=== PATIENT | female | born 1930 | race Caucasian/White ===

== ENCOUNTER 2016-10-19 12:57 | Observation (INO) | payer OTHER ==
[2016-10-19 13:36] VITALS: BMI 23.3
--- NOTE | 2016-10-19 14:35 | PDOC ---
History of Present Illness - General History Source: Patient, Family Exam Limitations: No Limitations - History of Present Illness Initial Comments: 10/19/16 14:35 The patient is a 86 year old female, with a significant past medical history of cardiac stents (multiple), who presents to the emergency department with SOB for over 2 weeks. The patient was sent here by her PCP, after an having an EKG reading. The patient reports her SOB is often made worse when lying down flat or with any activity. She denies any complaints of pain. She denies any cough. She denies recent fevers, chills, headache or dizziness. She denies recent nausea, vomit, diarrhea or constipation. She denies recent dysuria, frequency, urgency or hematuria. She denies recent chest pain. Allergies: NKDA Past surgical history: See HPI Social history: Nonsmoker. Denies EtOH use and drug use. Primary Care Physician: Dr. Rouse <Robert Mills - Last Filed: 10/19/16 16:39> - General History Source: Patient, Family, Old Records Exam Limitations: No Limitations <Shayla Wolfe - Last Filed: 10/19/16 17:05> - General Chief Complaint: Shortness of Breath Stated Complaint: SOB, LAB VARIANCE (PCP SENT) Time Seen by Provider: 10/19/16 13:56 Past History <Robert Mills - Last Filed: 10/19/16 16:39> - Past Medical History Anemia: No Asthma: Yes Cancer: No Cardiac Disorders: Yes (STENTS;CAD;PVD) CVA: No COPD: No CHF: No Dementia: No Diabetes: No GI Disorders: No Disorders: Yes HTN: Yes Hypercholesterolemia: Yes Liver Disease: No Seizures: No Thyroid Disease: No - Surgical History Abdominal Surgery: No Appendectomy: No Cardiac Surgery: Yes (STENTS) Cholecystectomy: No Lung Surgery: No Neurologic Surgery: Yes (BACK SURGERY) Orthopedic Surgery: No - Psycho/Social/Smoking Cessation Hx Suicidal Ideation: No Smoking History: Never smoked Have you smoked in the past 12 months: No Hx Alcohol Use: No Drug/Substance Use Hx: No Substance Use Type: None Hx Substance Use Treatment: No <Shayla Wolfe - Last Filed: 10/19/16 17:05> - Past Medical History Allergies/Adverse Reactions: Allergies Allergy/AdvReac Type Severity Reaction Status Date / Time No Known Drug Allergies Allergy Verified 10/19/16 13:38 Home Medications: Ambulatory Orders Aspirin [ASA -] 81 mg PO DAILY 06/06/12 Clopidogrel Bisulfate [Plavix] 75 mg PO DAILY 06/06/12 Montelukast Na [Singulair] 10 PO DAILY 06/06/12 Ranolazine [Ranexa] 500 mg PO BID 06/06/12 Simvastatin [Zocor -] 40 PO DAILY 06/06/12 Timolol [Betimol] 10 ml OP DAILY 06/06/12 Tiotropium [place] [Spiriva] 18 mcg IH DAILY 06/06/12 Meclizine HCl [Antivert -] PO BID 06/07/12 Review of Systems - Review of Systems Able to Perform ROS?: Yes Comments:: 10/19/16 14:35 CONSTITUTIONAL: Absent: fever, no chills, no fatigue EYES: Absent: visual changes ENT: Absent: ear pain, no sore throat CARDIOVASCULAR: Absent: chest pain, no palpitations RESPIRATORY: +SOB. Absent: cough GI: Absent: abdominal pain, no nausea, no vomiting, no constipation, no diarrhea GENITOURINARY: Absent: dysuria, no frequency, no hematuria MUSKULOSKELETAL: Absent: back pain, no arthralgia, no myalgia SKIN: Absent: rash NEURO: Absent: headache <Robert Mills - Last Filed: 10/19/16 16:39> *Physical Exam - Vital Signs Last Vital Signs Temp Pulse Resp BP Pulse Ox 98.2 F 75 18 145/74 95 10/19/16 13:32 10/19/16 13:32 10/19/16 13:32 10/19/16 13:32 10/19/16 13:32 - Physical Exam Comments: 10/19/16 14:36 GENERAL: Well developed, well nourished. Awake and alert. No acute distress. HEENT: Normocephalic, atraumatic. PERRLA, EOMI. No conjunctival pallor. Sclera are non- icteric. Moist mucous membranes. Oropharynx is clear. NECK: Supple. Full ROM. No JVD. Carotid pulses 2+ and symmetric, without bruits. No thyromegaly. No lymphadenopathy. CARDIOVASCULAR: Regular rate and rhythm. No murmurs, rubs, or gallops. Distal pulses are 2+ and symmetric. PULMONARY: No evidence of respiratory distress. Lungs clear to auscultation bilaterally. No wheezing, rales or rhonchi. ABDOMINAL: Soft. Non-tender. Non-distended. No rebound or guarding. No organomegaly. Normoactive bowel sounds. MUSCULOSKELETAL Normal range of motion at all joints. No bony deformities or tenderness. No CVA tenderness. EXTREMITIES: Trace bipedal edema. No cyanosis. No clubbing. No calf tenderness. SKIN: Warm and dry. Normal capillary refill. No rashes. No jaundice. NEUROLOGICAL: Alert, awake, appropriate. Cranial nerves 2-12 intact. No deficits to light touch and temperature in face, upper extremities and lower extremities. No motor deficits in the in face, upper extremities and lower extremities. Normoreflexic in the upper and lower extremities. Normal speech. Toes are down- going bilaterally. Gait is normal without ataxia. PSYCHIATRIC: Cooperative. Good eye contact. Appropriate mood and affect. <Robert Mills - Last Filed: 10/19/16 16:39> - Vital Signs Last Vital Signs Temp Pulse Resp BP Pulse Ox 98.2 F 75 18 145/74 95 10/19/16 13:32 10/19/16 13:32 10/19/16 13:32 10/19/16 13:32 10/19/16 13:32 <Shayla Wolfe - Last Filed: 10/19/16 17:05> ED Treatment Course - LABORATORY CBC & Chemistry Diagram: 10/19/16 14:34 10/19/16 14:34 - RADIOLOGY Radiograph Interpretation: 10/19/16 16:37 CHEST X-RAY impressions reported by : No evidence of pneumonia, CHF, pneumothrorax, or large pleural effusion. <Robert Mills - Last Filed: 10/19/16 16:39> - LABORATORY CBC & Chemistry Diagram: 10/19/16 14:34 10/19/16 14:34 - RADIOLOGY Radiology Studies Ordered: Category Date Time Status CHEST X-RAY PORTABLE* [RAD] Stat Radiology 10/19/16 14:06 Ordered <Shayla Wolfe - Last Filed: 10/19/16 17:05> Medical Decision Making - Medical Decision Making 10/19/16 16:34 Call made to , awaiting call back. 10/19/16 16:39 Call back from , case discussed. <Robert Mills - Last Filed: 10/19/16 16:39> - Medical Decision Making 10/19/16 15:21 86-year-old female with history of coronary artery disease, CHF, hypertension presents the emergency Department with complaints of 2 week history of progressive dyspnea on exertion but denies chest pain. Differential diagnosis includes but is not limited to: CHF exacerbation, pneumonia, electrolyte abnormality, anemia, toxic/metabolic derangement. Plan: 1. EKG 2. Labs 3. Chest x-ray 4. Observe and reevaluate 10/19/16 16:53 Addendum: The labs were reviewed and are noted in the EMR. Her BNP is elevated and CXR shows atelectasis in the RLL. Will admit to tele observation for serial cardiac enzymes, echocardiogram and diuresis. the case was discussed with Dr. Ramirez. Lasix 20mg IV ordered. <Shayla Wolfe - Last Filed: 10/19/16 17:05> *DC/Admit/Observation/Transfer - Attestations Scribe Attestion: Documentation prepared by Robert Mills, acting as medical equipment repair technician for Shayla Wolfe MD. 10/19/16 14:36 <Robert Mills - Last Filed: 10/19/16 16:39> - Discharge Dispostion Admit: Yes - Attestations Physician Attestion: 10/19/16 15:23 I, Dr. Shayla Wolfe, attest that the scribes documentation that appears above has been prepared under my direction and personally reviewed by me in its entirety. I confirmed that the note above accurately reflects all work, treatment, procedures, and medical decision-making performed by me. <Shayla Wolfe - Last Filed: 10/19/16 17:05> Diagnosis at time of Disposition: Shortness of breath, CHF exacerbation - Discharge Dispostion Condition at time of disposition: Stable
[2016-10-19 15:11] LABS: URINE APPEARANCE CLEAR; URINE BILIRUBIN NEGATIVE (NEGATIVE); URINE BLOOD NEGATIVE (NEGATIVE); URINE COLOR DKYELLOW; URINE GLUCOSE (UA) NEGATIVE (NEGATIVE); URINE KETONE NEGATIVE (NEGATIVE); URINE NITRITE NEGATIVE (NEGATIVE); URINE UROBILINOGEN NEGATIVE E.U./dl (0.2-1.0)
[2016-10-19 15:21] LABS: BASOPHIL 0.5 % (0-2.0); EOSINOPHIL 1.6 % (0-4.5); MCH 26.2 pg (25.7-33.7); MEAN PLT VOLUME 9.6 fl (7.5-11.1); NEUTROPHILS 76.6 % (42.8-82.8); PLATELET COUNT 185 K/MM3 (134-434); RDW 15.8 % (11.6-15.6); WHITE BLOOD COUNT 8.4 K/mm3 (4.0-10.0)
[2016-10-19 15:33] LABS: URINE LEUK ESTERASE TRACE (NEGATIVE); URINE PROTEIN 1+ (NEGATIVE)
[2016-10-19 15:35] LABS: URINE HYALINE CAST 1 /lpf; URINE MUCUS RARE; URINE RBC 1 /hpf (0-3); URINE WBC 5 /hpf (3-5)
[2016-10-19 15:36] LABS: ALBUMIN 3.8 g/dl (3.4-5.0); ANION GAP 10 (8-16); BILIRUBIN,TOTAL 0.6 mg/dL (0.2-1.0); CALCIUM 9.2 mg/dL (8.5-10.1); CO2 30 mmol/L (21-32); CREATININE 0.8 mg/dL (0.55-1.02); GLUCOSE,RANDOM 88 mg/dL (74-106); SGOT/AST 14 U/L (15-37); SGPT/ALT 18 U/L (12-78); TOT PROT 6.6 g/dl (6.4-8.2)
[2016-10-19 15:39] LABS: ALK PHOS 82 U/L (45-117); TROPONIN I < 0.02 ng/ml (0.00-0.05)
[2016-10-19] MEDS ORDERED: FUROSEMIDE 40 MG/4 ML INJECTABLE VIAL IVPUSH ONE (16:39)
[2016-10-19] MEDS ORDERED: FUROSEMIDE 40 MG/4 ML INJECTABLE VIAL ONE (16:48)
[2016-10-19 19:58] VITALS: BP 162/75; PULSE 77; TEMP 98.1
--- NOTE | 2016-10-20 14:14 | EKG ---
Test Reason : Blood Pressure : / mmHG Vent. Rate : 071 BPM Atrial Rate : 071 BPM P-R Int : 176 ms QRS Dur : 084 ms QT Int : 436 ms P-R-T Axes : 055 -06 125 degrees QTc Int : 473 ms POOR DATA QUALITY, INTERPRETATION MAY BE ADVERSELY AFFECTED NORMAL SINUS RHYTHM LEFT VENTRICULAR HYPERTROPHY WITH REPOLARIZATION ABNORMALITY CANNOT RULE OUT SEPTAL INFARCT , AGE UNDETERMINED ABNORMAL ECG NO PREVIOUS ECGS AVAILABLE Confirmed by PARESH ESCAMILLA, HECTOR ([id number]) on 10/20/2016 2:13:39 PM Referred By: Confirmed By:HECTOR YODER MD
== END 2016-10-19 21:30 | disposition left against medical advice (07) ==
LOC: JER 12:57 → JERBED 17:04
PROVIDERS: ADMIT Internal Medicine Cardiovascular Disease; ATTEND Internal Medicine Cardiovascular Disease
PROC: 3E033GC Introduction of Other Therapeutic Substance into Peripheral Vein, Percutaneous Approach (ICD-10-PCS; principal; 2016-10-19)
DX: I50.9 Heart failure, unspecified (principal); I10 Essential (primary) hypertension; I25.10 Atherosclerotic heart disease of native coronary artery without angina pectoris; J45.909 Unspecified asthma, uncomplicated; Z95.5 Presence of coronary angioplasty implant and graft; E78.00 Pure hypercholesterolemia, unspecified; Z79.82 Long term (current) use of aspirin
CPT/HCPCS: 36415; 71010-TC; 80053; 81003; 81015; 82550; 83880; 84484; 85025; 93005; 93010; 99284-25; G0378